=== PATIENT | male | born 1980 | race Caucasian/White ===

== ENCOUNTER → 2020-10-22 | Outpatient (CLI) | payer MEDICAID ==
[2020-10-22 11:33] LABS: Basophils # (A) 0.02 X 10*3/uL (0.00-0.10); Basophils % (A) 0.4 %; Eosinophils # (A) 0.14 X 10*3/uL (0.04-0.35); Eosinophils % (A) 2.5 %; HCT 43.4 % (39.6-50.0); HGB 14.4 g/dL (13.0-17.0); Lymphocytes # (A) 1.92 X 10*3/uL (0.90-5.00); Lymphocytes % (A) 34.7 %; MCHC 33.2 g/dL (32.0-37.0); MCV 90.4 fL (80.0-97.0); Mean Platelet Volume 9.1 fL (9.5-12.2); Monocytes # (A) 0.57 X 10*3/uL (0.20-1.00); Monocytes % (A) 10.3 %; Neutrophils # (A) 2.87 X 10*3/uL (1.80-7.70); Neutrophils % (A) 51.9 %; Platelet Count 269 X 10*3/uL (140-440); WBC 5.53 X 10*3/uL (4.50-10.00)
[2020-10-22 12:41] LABS: African American GFR (CKD) 96.8 (60.0-200.0); Albumin 4.4 g/dL (3.80-4.90); Albumin/Globulin Ratio 1.69 (1.60-3.17); Anion Gap 6.8 mmol/L (4.00-12.00); BUN/Creat Ratio 18.18 Ratio (12.00-20.00); Calcium 9.1 mg/dL (8.7-10.3); Carbon Dioxide 25.2 mmol/L (21.6-31.8); Chol/HDL Ratio 4.59; Globulin 2.6 g/dL (1.6-3.3); LDL Cholesterol,Calculated 105.8 mg/dL (0.0-131.0); Non-African American GFR(CKD) 83.5 (60.0-200.0); Potassium 4.2 mmol/L (3.5-5.5); Total Bilirubin 0.7 mg/dL (0.2-1.2); VLDL Calculation 27.2 mg/dL (5.00-40.00)
== END | disposition home or self-care (01) ==
LOC: LABWHC1 07:18
PROVIDERS: ATTEND Physician Assistant Medical
DX: Z00.00 Encounter for general adult medical examination without abnormal findings (principal); Z77.011 Contact with and (suspected) exposure to lead
CPT/HCPCS: 36415; 80053; 80061; 83655; 84443; 85025

== ENCOUNTER → 2022-01-19 | Outpatient (CLI) | payer MEDICAID ==
--- NOTE | 2022-01-19 10:27 | CT ---
EXAMINATION TYPE: CT lumbar spine wo con DATE OF EXAM: 01/19/2022 COMPARISON: None HISTORY: 41-year-old male M54.16, lumbar region radiculopathy, Numbness down Lt leg TECHNIQUE: Contiguous axial scanning of the lumbar spine without IV contrast. Coronal and sagittal re constructions performed. CT DLP: 998 mGycm Automated exposure control for dose reduction was used. FINDINGS: There is a transitional lumbosacral segment denoted as a lumbarized S1. Vertebral body heights are preserved and alignment is maintained. There is mild facet arthropathy lower lumbar spine. 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 There is mild degenerative disc disease with disc space narrowing and disc bulge at L5-S1. Along with a superimposed large left paracentral disc extrusion at this level filling the left lateral recess a nd a large portion of the spinal canal, changes often a focal moderate spinal canal stenosis and mode rate left neuroforaminal stenosis. There is mild right neural foraminal narrowing. No prevertebral or paravertebral soft tissue motility seen. IMPRESSION: 1. NOTE A TRANSITIONAL LUMBOSACRAL SEGMENT. THIS IS DENOTED A LUMBARIZED S1. 2. MILD DEGENERATIVE DISC DISEASE L5-S1 BUT WITH A LARGE LEFT PARACENTRAL DISC HERNIATION/EXTRUSION F ILLING THE LEFT LATERAL RECESS AND CONTRIBUTING TO A MODERATE SPINAL CANAL STENOSIS. THIS LIKELY IMPI NGES THE TRAVERSING LEFT-SIDED nerve roots including left S1 and possibly S2. Surgical evaluation may be beneficial. 3. Scattered mild facet arthropathy. Overall changes result in moderate left and mild right neurofora arturo stenosis at L5-S1. 4. 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
== END | disposition home or self-care (01) ==
LOC: RADCTMAIN 09:47
PROVIDERS: ATTEND Physician Assistant Medical
DX: M51.17 Intervertebral disc disorders with radiculopathy, lumbosacral region (principal); M48.07 Spinal stenosis, lumbosacral region; M47.26 Other spondylosis with radiculopathy, lumbar region
CPT/HCPCS: 72131

== ENCOUNTER 2022-05-30 13:08 | Emergency (ER) | payer MEDICAID ==
[2022-05-30] MEDS ORDERED: diphenhydrAMINE 50 MG/ML 1 ML VIAL IVP STA (13:33)
[2022-05-30] MEDS ORDERED: SODIUM CHLORIDE 0.9% 1,000 ML IV ONE (13:33)
[2022-05-30] MEDS ORDERED: PROCHLORPERAZINE INJ 10 MG/2 ML VIAL IVP STA (13:33)
[2022-05-30] MEDS ORDERED: KETOROLAC 15 MG/ML 1 ML VIAL IVP STA ×2 (13:33→15:49)
--- NOTE | 2022-05-30 13:38 | ED ---
General Adult HPI - General Chief complaint: Headache Stated complaint: headache x3 days Time Seen by Provider: 05/30/22 13:25 Source: patient, RN notes reviewed Mode of arrival: ambulatory Limitations: no limitations - History of Present Illness Initial comments: 41-year-old male presents to the emergency department with chief complaint of headache 4 days. She reports that he was not doing anything when the headache started. He reports that he usually is able to take Tylenol or Motrin 12-lead the pain however this time it has not. He reports that it is worse if he bends over or pick something up around. He describes the headache as "explosive." He denies any vision changes, blurred vision, nausea, vomiting, photophobia. He denies a known history of migraines. He also reports that he had a urinalysis performed his PCP which SUGGESTED having red blood cells in it. - Related Data Home Medications Medication Instructions Recorded Confirmed Acetaminophen Tab [Tylenol] 1,000 mg PO Q6H PRN 05/30/22 05/30/22 Ibuprofen [Motrin Ib] 800 mg PO Q8H PRN 05/30/22 05/30/22 methylPREDNISolone Dose Pack See Taper PO DIRECTED 05/30/22 05/30/22 [Medrol Dose Pack] Allergies Allergy/AdvReac Type Severity Reaction Status Date / Time No Known Allergies Allergy Verified 05/30/22 15:16 Review of Systems ROS Statement: Those systems with pertinent positive or pertinent negative responses have been documented in the HPI. ROS Other: All systems not noted in ROS Statement are negative. Past Medical History Additional Past Medical History / Comment(s): herniated disc lumbar History of Any Multi-Drug Resistant Organisms: None Reported Past Surgical History: No Surgical Hx Reported Past Psychological History: No Psychological Hx Reported Smoking Status: Never smoker Past Alcohol Use History: None Reported Past Drug Use History: None Reported General Exam Limitations: no limitations General appearance: alert, in no apparent distress Head exam: Present: atraumatic, normocephalic, normal inspection Eye exam: Present: normal appearance, PERRL, EOMI. Absent: scleral icterus, con junctival injection, periorbital swelling ENT exam: Present: normal exam, mucous membranes moist Neck exam: Present: normal inspection. Absent: tenderness, meningismus, lymphadenopathy Respiratory exam: Present: normal lung sounds bilaterally. Absent: respiratory distress, wheezes, rales, rhonchi, stridor Cardiovascular Exam: Present: regular rate, normal rhythm, normal heart sounds. Absent: systolic murmur, diastolic murmur, rubs, gallop, clicks GI/Abdominal exam: Present: soft, normal bowel sounds. Absent: distended, tenderness, guarding, rebound, rigid Extremities exam: Present: normal inspection, full ROM, normal capillary refill. Absent: tenderness, pedal edema, joint swelling, calf tenderness Back exam: Present: normal inspection Neurological exam: Present: alert, oriented X3, CN II-XII intact Psychiatric exam: Present: normal affect, normal mood Skin exam: Present: warm, dry, intact, normal color. Absent: rash Course Vital Signs 05/30/22 05/30/22 13:12 16:09 Temperature 98 F 98.6 F Pulse Rate 87 78 Respiratory 16 18 Rate Blood Pressure 141/98 138/68 O2 Sat by Pulse 99 98 Oximetry - Reevaluation(s) Reevaluation #1: 05/30/22 15:49 Patient reevaluated. Patient reports symptomatic relief status post migraine headache medications. Medical Decision Making - Medical Decision Making Was pt. sent in by a medical professional or institution (, PA, ELECTRO MECHANICAL SOLAR TECHNICIAN, urgent care, hospital, or fci...) When possible be specific @ -[No] Did you speak to anyone other than the patient for history (EMS, parent, family, police, friend...)? What history was obtained from this source @ -[No] Did you review nursing and triage notes (agree or disagree)? Why? @ -[I reviewed and agree with nursing and triage notes] Were old charts reviewed (outside hosp., previous admission, EMS record, old EKG, old radiological studies, urgent care reports/EKG's, fci records)? Report findings @ -[No old charts were reviewed] Differential Diagnosis (chest pain, altered mental status, abdominal pain women, abdominal pain men, vaginal bleeding, weakness, fever, dyspnea, syncope, headache, dizziness, GI bleed, back pain, seizure, CVA, palpatations, mental health)? @ -[not applicable] EKG interpreted by me (3pts min.). @ -[As above] X-rays interpreted by me (1pt min.). @ -[None done] CT interpreted by me (1pt min.). @ -Negative for any evidence of intracranial process or intracranial hemorrhage. U/S interpreted by me (1pt. min.). @ -[None done] What testing was considered but not performed or refused? (CT, X-rays, U/S, labs)? Why? @ -[None] What meds were considered but not given or refused? Why? @ -[None] Did you discuss the management of the patient with other professionals (professionals i.e. , PA, ELECTRO MECHANICAL SOLAR TECHNICIAN, lab, RT, psych nurse, social science instructor, floral assistant, teacher, patient safety officer, field nurse case manager)? Give summary @ -[No] Was smoking cessation discussed for >3mins.? @ -[No] Was critical care preformed (if so, how long)? @ -[No] Were there social determinants of health that impacted care today? How? (Homelessness, low income, unemployed, alcoholism, drug addiction, transportation, low edu. Level, literacy, decrease access to med. care, long-term, rehab)? @ -[No] Was there de-escalation of care discussed even if they declined (Discuss DNR or withdrawal of care, Hospice)? DNR status @ -[No] What co-morbidities impacted this encounter? (DM, HTN, Smoking, COPD, CAD, Cancer, CVA, ARF, Chemo, Hep., AIDS, mental health diagnosis, sleep apnea, morbid obesity)? @ -[None] Was patient admitted / discharged? Hospital course, mention meds given and route, prescriptions, significant lab abnormalities, going to OR and other pertinent info. @ 41-year-old male presents to the emergency department with headache. Patient had a history and physical performed. Physical exam is essentially unremarkable heart rate regular rate and rhythm, lung sounds clear to auscultation bilaterally abdomen soft and nontender. Lab results negative, XR and CT negative. Patient was given Toradol, Compazine, Benadryl, 1 L IV fluids with symptomatic relief in the emergency department. He was encouraged encouraged to follow up with her primary care in 1-2 days. Patient verbalized all understanding and all questions were addressed. Patient was discharged in stable condition with return precautions discussed. I discussed the case with GRANT Hill who agrees and agrees with the plan of care. Undiagnosed new problem with uncertain prognosis? @ -[No] Drug Therapy requiring intensive monitoring for toxicity (Heparin, Nitro, I nsulin, Cardizem)? @ -[No] Were any procedures done? @ -[No] Diagnosis/symptom? @ -migraine Acute, or Chronic, or Acute on Chronic? @ -acute Uncomplicated (without systemic symptoms) or Complicated (systemic symptoms)? @ -uncomplicated Side effects of treatment? @ -[No] Exacerbation, Progression, or Severe Exacerbation? @ -[No] Poses a threat to life or bodily function? How? (Chest pain, [place], [place], pneumonia, PE, COPD, DKA, ARF, appy, cholecystitis, CVA, Diverticulitis, Homicidal, Suicidal, threat to staff... and all critical care pts) @ -[No] - Lab Data Result diagrams: 05/30/22 13:45 05/30/22 13:45 Lab Results 05/30/22 05/30/22 Range/Units 13:45 13:45 WBC 10.8 H (3.8-10.6) k/uL RBC 5.04 (4.30-5.90) m/uL Hgb 14.8 (13.0-17.5) gm/dL Hct 43.1 (39.0-53.0) % MCV 85.5 (80.0-100.0) fL MCH 29.4 (25.0-35.0) pg MCHC 34.4 (31.0-37.0) g/dL RDW 12.3 (11.5-15.5) % Plt Count 283 (150-450) k/uL MPV 6.6 Neutrophils % 78 % Lymphocytes % 12 % Monocytes % 7 % Eosinophils % 1 % Basophils % 0 % Neutrophils # 8.4 H (1.3-7.7) k/uL Lymphocytes # 1.3 (1.0-4.8) k/uL Monocytes # 0.8 (0-1.0) k/uL Eosinophils # 0.1 (0-0.7) k/uL Basophils # 0.0 (0-0.2) k/uL Sodium 135 L (137-145) mmol/L Potassium 4.3 (3.5-5.1) mmol/L Chloride 106 (98-107) mmol/L Carbon Dioxide 22 (22-30) mmol/L Anion Gap 7 mmol/L BUN 14 (9-20) mg/dL Creatinine 0.86 (0.66-1.25) mg/dL Est GFR (CKD-EPI)AfAm >90 (>60 ml/min/1.73 sqM) Est GFR (CKD-EPI)NonAf >90 (>60 ml/min/1.73 sqM) Glucose 102 H (74-99) mg/dL Calcium 8.8 (8.4-10.2) mg/dL Disposition Clinical Impression: Migraine Disposition: HOME SELF-CARE Condition: Stable Instructions (If sedation given, give patient instructions): Acute Headache (ED) Additional Instructions: Patient return to the nearest emergency department department if symptoms worsen or persist Is patient prescribed a controlled substance at d/c from ED?: No Referrals: Gilles Rosenthal MD [Primary Care Provider] - 1-2 days Time of Disposition: 15:49
[2022-05-30 13:57] LABS: Basophils % (A) 0 %; Eosinophils # (A) 0.1 k/uL (0-0.7); Eosinophils % (A) 1 %; HCT 43.1 % (39.0-53.0); HGB 14.8 gm/dL (13.0-17.5); Lymphocytes # (A) 1.3 k/uL (1.0-4.8); Lymphocytes % (A) 12 %; MCH 29.4 pg (25.0-35.0); MCHC 34.4 g/dL (31.0-37.0); MCV 85.5 fL (80.0-100.0); Mean Platelet Volume 6.6; Monocytes # (A) 0.8 k/uL (0-1.0); Monocytes % (A) 7 %; Neutrophils # (A) 8.4 k/uL (1.3-7.7); Neutrophils % (A) 78 %; Platelet Count 283 k/uL (150-450); RBC 5.04 m/uL (4.30-5.90); RDW 12.3 % (11.5-15.5); WBC 10.8 k/uL (3.8-10.6)
[2022-05-30 14:07] LABS: African American GFR (CKD) >90 (>60 ml/min/1.73 sqM); Anion Gap 7 mmol/L; Blood Urea Nitrogen 14 mg/dL (9-20); Calcium 8.8 mg/dL (8.4-10.2); Carbon Dioxide 22 mmol/L (22-30); Chloride 106 mmol/L (98-107); Glucose 102 mg/dL (74-99); Non-African American GFR(CKD) >90 (>60 ml/min/1.73 sqM); Potassium 4.3 mmol/L (3.5-5.1); Sodium 135 mmol/L (137-145)
--- NOTE | 2022-05-30 14:10 | XR ---
EXAMINATION TYPE: XR KUB DATE OF EXAM: 05/30/2022 COMPARISON: NONE HISTORY: Pain TECHNIQUE: Single supine KUB image of the abdomen is obtained FINDINGS: Small bowel demonstrates no evidence for dilatation or air fluid levels. Gas and fecal material is seen in non-distended colon. No convincing evidence for pneumoperitoneum. No unusual calcifications. The lung bases are clear. The osseous structures are intact. IMPRESSION: 1. Overall nonobstructive bowel gas pattern.
--- NOTE | 2022-05-30 15:36 | CT ---
EXAMINATION TYPE: CT brain wo/w con DATE OF EXAM: 05/30/2022 COMPARISON: None HISTORY: headache x 3-[address] DLP: 2475.4 mGycm Automated Exposure Control for Dose Reduction was Utilized. TECHNIQUE: CT scan of the head is performed with IV contrast.,CT scan of the head is performed withou t and with with IV Contrast, patient injected with 100 cc mL of Isovue 300. FINDINGS: Noncontrast images show no acute intracranial hemorrhage or midline shift. The ventricles and sulci are within normal limits in size. Postcontrast images show no suspicious enhancing intrapa renchymal mass. The globes are intact and the visualized sinuses are clear. IMPRESSION: Negative contrast enhanced head CT exam.
[2022-05-30 16:10] VITALS: BP 138/68; PULSE 78; RESP 18; TEMP 98.6
== END 2022-05-30 16:09 | disposition home or self-care (01) ==
LOC: EC 13:08
DX: G43.909 Migraine, unspecified, not intractable, without status migrainosus (principal)
CPT/HCPCS: 36415; 80048; 85025; 74018; 70470; 99284; 96374; 96375 ×2; 96361 ×2; J1200; J0780; J1885; Q9967

== ENCOUNTER → 2024-07-21 | Outpatient (CLI) | payer BC ==
--- NOTE | 2024-07-21 09:02 | CT ---
EXAMINATION TYPE: CT knee LT wo con DATE OF EXAM: 07/21/2024 8:32 AM COMPARISON: None CLINICAL INDICATION: Male, 43 years old with history of S83.512A SPRAIN OF ANTERIOR CRUCIATE LIGAMENT OF L; PHH, Chronic left knee pain. TECHNIQUE: Axial images were obtained of the CT knee LT wo con, Additional coronal and sagittal refor matted images and soft tissue and bone window were obtained for review. 3-D reconstruction was create d on a separate workstation. Contrast used: mL of , (None if empty) Oral contrast used: (None if empty) CT DLP: 628.1 mGycm, Automated exposure control for dose reduction was used. FINDINGS: Severe degeneration changes of the knee for patient's age with calcified joint bodies inclu ding anterior anterior lateral knee measuring up to 13 mm and posterior medial knee measuring up to 1 0 mm. There is large osteophytes present. A fabella is present. Degeneration generation changes somew hat worse in the lateral compartment with deformity to the articular surface of the tibial plateau. N o evidence of acute fracture or dislocation. Muscle volume is appropriate. ACL is nonfilling visualiz ed. Consider MRI imaging for evaluation of the tissue structures. IMPRESSION: 1. No evidence of fracture. 2. Severe degeneration changes for patient's age with calcified joint bodies present. There is defor mity to the articular surface of the tibia plateau and the lateral knee. [facility], , 07/21/2024 8:59 AM
== END | disposition home or self-care (01) ==
LOC: RADCTMAIN 08:07
PROVIDERS: ATTEND Emergency Medicine
DX: S83.512A Sprain of anterior cruciate ligament of left knee, initial encounter (principal); M17.12 Unilateral primary osteoarthritis, left knee